=== PATIENT | female | born 1945 | race Caucasian/White ===

== ENCOUNTER → 2016-08-08 | Outpatient (CLI) | payer OTHER ==
--- NOTE | 2016-08-08 10:04 | US ---
Limited Abdominal Sonogram History: Evaluate for aneurysm, high blood pressure, hypercholesterolemia, I 71.4 Comparison: September 11, 2007 abdominal sonogram Findings: The abdominal aorta does not demonstrate aneurysm formation. There is minimal atherosclerot ic plaque present. The proximal aorta measures 2.3 x 2.6 cm. The mid abdominal aorta measures 2.1 x 2.1 cm. The distal abdominal aorta measures 1.9 x 2 cm. The right common iliac artery measures 1.2 x 1.2 cm. The left common iliac artery measures 1.3 x 1.3 cm. Impression: No aneurysm.
== END ==
LOC: BMCIMAGING 09:14
PROVIDERS: ATTEND Internal Medicine
DX: Z03.89 Encounter for observation for other suspected diseases and conditions ruled out (principal)

== ENCOUNTER → 2017-08-13 | Outpatient (CLI) | payer OTHER | LOC: BMCIMAGING 12:30 | PROVIDERS: ATTEND Internal Medicine | DX: I65.23 Occlusion and stenosis of bilateral carotid arteries (principal); E04.1 Nontoxic single thyroid nodule ==

== ENCOUNTER → 2017-08-21 | Outpatient (CLI) | payer OTHER | LOC: BMCIMAGING 13:36 | PROVIDERS: ATTEND Internal Medicine | DX: E04.2 Nontoxic multinodular goiter (principal) | CPT/HCPCS: 76536-PO ==

== ENCOUNTER 2017-09-29 08:09 | Observation (INO) | payer OTHER ==
--- NOTE | 2017-09-29 08:09 | EDPHY ---
H & P Time Seen by Provider: 09/29/17 08:09 HPI/ROS: CHIEF COMPLAINT: Right hip injury HISTORY OF PRESENT ILLNESS: Tripped over her oxygen tubing and fell around midnight or maybe as late as 1:00 a.m. landing on her right hip, brought in by EMS this morning. Says it was mechanical, did not lose consciousness. Her is already upstairs she banged on the wall for 2 hr and then just lay there until he discovered her at 3:30 a.m., but she did not want to go to the hospital. Later on in the morning the came out and she was still lying on the ground, they called a neighbor, who got them to call EMS. Pain in the right hip worse with movement or palpation radiates to the groin. Mild at rest but severe with movement or any attempt to weight bear. REVIEW OF SYSTEMS: Eye: no change in vision or double vision ENT: no sore throat Cardiac: no chest pain or syncope, definitely did not faint during this episode Pulmonary: no cough or SOB; did not wear her oxygen last night but feels like her breathing is normal now. Abdomen: no vomiting, diarrhea, abdominal pain Musculoskeletal: no back pain or neck pain, HPI Skin: no rash Neuro: no headache or head injury Constitutional: no fever : no urinary symptoms A comprehensive 10 point review of systems is otherwise negative aside from elements mentioned in the history of present illness. PAST MEDICAL HISTORY: Dr. Sumeet Valencia in [place]; bilateral hip and shoulder and knee replacements. 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 Oxygen at night only, hypothyroid, hypertension. Social history: Lives in [place], General Appearance: Alert and conversant, cooperative. Eyes: Left subconjunctival hemorrhage. No periorbital bruising. ENT, Mouth: Normal mucous membranes. No external evidence of head trauma on the scalp or the face. Respiratory: Normal respiratory effort, breath sounds equal, lungs are clear to auscultation. Speaking in full sentences with no extra work of breathing. Cardiovascular: Regular rate and rhythm. Gastrointestinal: Abdomen is soft and non tender. Neurological: Alert, face symmetric, normal motor and sensory in extremities. Specifically has normal movement sensation and dorsalis pedis pulse in the right foot. Skin: Warm and dry, no rashes. Musculoskeletal: No spinal tenderness, pelvis stable to compression, right hip as internal rotation and shortening with pain in the right hip on any movement. Good range of motion of all extremities except for the right hip. No point bony tenderness. Psychiatric: Not agitated. Emergency Department course/MDM: Declined pain medication. Labs to include CBC chemistry and CPK. X-rays of the right hip. 2 sips of water this morning but otherwise is been NPO since at least the time of her fall. 920: Discussed with Dr. Baca on-call for Orthopedics, will need his assistance as closed reduction not successful in the emergency department CPK noted as 700, IV normal saline 1 L. Does not have degree of rhabdomyolysis requiring hospitalization. 950: Keven, to OR ,admit hospitalist. Constitutional: Initial Vital Signs Temperature (C) 36.7 C 09/29/17 08:10 Heart Rate 113 H 09/29/17 08:10 Respiratory Rate 18 09/29/17 08:10 Blood Pressure 152/111 H 09/29/17 08:10 O2 Sat (%) 92 09/29/17 08:10 O2 Delivery Mode [Post Nasal Cannula Procedure 4th] O2 Delivery Mode [Procedural Nasal Cannula 3rd] O2 Delivery Mode [Post Nasal Cannula Procedure 2nd] O2 Delivery Mode [Post Non-Rebreather Mask Procedure 1st] O2 Delivery Mode [Procedural Non-Rebreather Mask 1st] O2 Delivery Mode [.Immediate Non-Rebreather Mask Pre-Procedure] O2 Delivery Mode Non-Rebreather Mask O2 (L/minute) [Post Procedure 2 4th] O2 (L/minute) [Procedural 3rd] 2 O2 (L/minute) [Post Procedure 2 2nd] O2 (L/minute) [Post Procedure 15 1st] O2 (L/minute) [Procedural 1st] 15 O2 (L/minute) [.Immediate Pre- 15 Procedure] Allergies/Adverse Reactions: Sulfa (Sulfonamide Antibiotics) Allergy (Verified 09/29/17 08:19) Home Medications: Medication Instructions Recorded Levothyroxine 09/29/17 Protonix 09/29/17 Simvastatin 09/29/17 Valsartan-Hctz 80-12.5 mg Tab 09/29/17 Medical Decision Making - Diagnostics Imaging Results: Imaging Impressions Hip X-Ray 09/29/17 08:14 Impression: Right hip dislocation. Difficult to determine if this is anterior or posterior. Pelvis X-Ray 09/29/17 09:15 Impression: Unsuccessful reduction. Imaging: I viewed and interpreted images myself Procedures: Procedure: Procedural sedation. Indication: Prosthetic hip reduction A pre-sedation evaluation was completed on the patient at 900 including medical history, allergies and medications, last oral intake, previous experience with sedation, airway assessment, physical examination. Patient is an appropriate candidate for procedural sedation. The risks, benefits, and alternatives of the sedation were discussed with the patient including but not limited to need for airway intervention, cardiovascular complications, ; and consent obtained. The patient is ASA class 2E.Mallampati and 3/3/2 airway assessments were completed. A time out was completed. The patient was sedated with propofol. The patient was monitored with continuous pulse oximetry, medical services assistant and end tidal CO2. There were no complications and no significant hypoxemia. I remained at the bedside for the sedation. The total time I spent in the procedural sedation was 12 min. At 9:20 a.m. the patient is alert, awake, and back to neurological and respiratory baseline. Attempt was made at reduction of the right hip under deep sedation and was unsuccessful. Differential Diagnosis: Differential considered including but not limited to prosthetic hip dislocation , femur fracture, pelvis fracture, hip contusion. Consult/Admit Bed Type: [facility] 1000 - Data Points Laboratory Results: Laboratory Results 09/29/17 08:17 09/29/17 08:17 09/29/17 09/29/17 08:17 08:17 WBC 11.16 10^3/uL H 10^3/uL (3.80-9.50) RBC 5.12 10^6/uL 10^6/uL (4.18-5.33) Hgb 15.7 g/dL g/dL (12.6-16.3) Hct 45.4 % % (38.0-47.0) MCV 88.7 fL fL (81.5-99.8) MCH 30.7 pg pg (27.9-34.1) MCHC 34.6 g/dL g/dL (32.4-36.7) RDW 13.1 % % (11.5-15.2) Plt Count 257 10^3/uL 10^3/uL (150-400) MPV 9.8 fL fL (8.7-11.7) Neut % (Auto) 83.0 % H % (39.3-74.2) Lymph % (Auto) 12.5 % L % (15.0-45.0) [place] % (Auto) 3.9 % L % (4.5-13.0) Eos % (Auto) 0.0 % L % (0.6-7.6) Baso % (Auto) 0.3 % % (0.3-1.7) Nucleat RBC Rel Count 0.0 % % (0.0-0.2) Absolute Neuts (auto) 9.27 10^3/uL H 10^3/uL (1.70-6.50) Absolute Lymphs (auto) 1.40 10^3/uL 10^3/uL (1.00-3.00) Absolute Monos (auto) 0.43 10^3/uL 10^3/uL (0.30-0.80) Absolute Eos (auto) 0.00 10^3/uL L 10^3/uL (0.03-0.40) Absolute Basos (auto) 0.03 10^3/uL 10^3/uL (0.02-0.10) Absolute Nucleated RBC 0.00 10^3/uL 10^3/uL (0-0.01) Immature Gran % 0.3 % % (0.0-1.1) Immature Gran # 0.03 10^3/uL 10^3/uL (0.00-0.10) Sodium 138 mEq/L mEq/L (135-145) Potassium 3.7 mEq/L mEq/L (3.5-5.2) Chloride 100 mEq/L mEq/L (97-110) Carbon Dioxide 21 mEq/l L mEq/l (22-31) Anion Gap 17 mEq/L H mEq/L (8-16) BUN 20 mg/dL mg/dL (7-23) Creatinine 0.6 mg/dL mg/dL (0.6-1.0) Estimated GFR > 60 Glucose 155 mg/dL H mg/dL (70-100) Calcium 9.3 mg/dL mg/dL (8.5-10.4) Creatine Kinase 732 IU/L H IU/L (0-156) CK-MB (CK-2) Fraction 15.40 ng/mL H ng/mL (0.00-3.19) CK-MB (CK-2) % 2.1 % % (0.0-4.0) Creatine Kinase Interp NEGATIVE (NEGATIVE) Medications Given: Discontinued Medications Hydromorphone HCl (Dilaudid) 0.5 mg IVP EDNOW ONE Stop: 09/29/17 09:22 Last Admin: 09/29/17 09:25 Dose: 0.5 mg Hydromorphone HCl (Dilaudid) 0.5 mg IVP EDNOW ONE Stop: 09/29/17 09:43 Last Admin: 09/29/17 09:47 Dose: 0.5 mg Sodium Chloride (Ns) 1,000 mls @ 0 mls/hr IV EDNOW ONE; Wide Open PRN Reason: Protocol Stop: 09/29/17 08:40 Last Admin: 09/29/17 08:48 Dose: 1,000 mls Propofol (Diprivan) 100 mg IVP EDNOW ONE Stop: 09/29/17 09:21 Last Admin: 09/29/17 09:11 Dose: 100 mg Departure - Departure Disposition: To OP Cath/Surgery Clinical Impression: Dislocation of internal left hip prosthesis, initial encounter Rhabdomyolysis Qualifiers: Rhabdomyolysis type: traumatic Encounter type: initial encounter Qualified Code (s): T79.6XXA - Traumatic ischemia of muscle, initial encounter Condition: Good
[2017-09-29 08:25] LABS: PLATELET COUNT 257 10^3/uL (150-400)
[2017-09-29 08:35] LABS: CREATINE KINASE 732 IU/L (0-156)
[2017-09-29] MEDS ORDERED: NS 1,000 ML IV ONE (08:39)
[2017-09-29] MEDS ORDERED: PROPOFOL 200 MG/20 ML VIAL ONE ×2 (09:02→10:30)
[2017-09-29] MEDS ORDERED: PROPOFOL 200 MG/20 ML VIAL IVP ONE (09:20)
[2017-09-29] MEDS ORDERED: HYDROmorphONE/DILAUDID 2 MG/ML INJ IVP ONE ×2 (09:21→09:42)
[2017-09-29] MEDS ORDERED: NALOXONE HCL 0.4 MG/ML INJ IVP PRN (10:22)
[2017-09-29] MEDS ORDERED: fentaNYL 100 MCG/2 ML INJ IVP PRN (10:22)
[2017-09-29] MEDS ORDERED: ONDANSETRON 4 MG/2 ML VIAL IVP PRN ×2 (10:22→10:50)
[2017-09-29] MEDS ORDERED: ACETAMINOPHEN 500 MG TAB PO PRN (10:22)
[2017-09-29] MEDS ORDERED: DEXAMETHASONE 4 MG/ML VIAL IVP PRN (10:22)
[2017-09-29] MEDS ORDERED: ALBUTEROL 3 ML DEYVIAL IH PRN (10:22)
[2017-09-29] MEDS ORDERED: HYDROmorphONE/DILAUDID 2 MG/ML INJ IVP PRN ×2 (10:22→10:50)
--- NOTE | 2017-09-29 10:22 | PDANEPAE ---
ANE History of Present Illness Relocation of Hip ANE Past Medical History - Pulmonary History Hx Oxygen in Use at Home: Yes O2 in Use at Home (L/minute): 2 Hx Sleep Apnea: No - Endocrine History Hx Diabetes: No ANE Review of Systems Review of systems is: negative Review of Systems: - Exercise capacity Exercise capacity: limited by disability ANE Patient History - Allergies Allergies/Adverse Reactions: Sulfa (Sulfonamide Antibiotics) Allergy (Verified 09/29/17 08:19) - Home Medications Home Medications: Levothyroxine 09/29/17 [Last Taken Unknown] Protonix 09/29/17 [Last Taken Unknown] Simvastatin 09/29/17 [Last Taken Unknown] Valsartan-Hctz 80-12.5 mg Tab 09/29/17 [Last Taken Unknown] - NPO status NPO Since - Liquids (Date): 09/28/17 NPO Since - Liquids (Time): 21:00 NPO Since - Solids (Date): 09/28/17 NPO Since - Solids (Time): 21:00 - Smoking Hx Smoking Status: Never smoked ANE Labs/Vital Signs - Labs Result Diagrams: 09/29/17 08:17 09/29/17 08:17 - Vital Signs Blood Pressure: 131/88 Heart Rate: 99 Respiratory Rate: 18 O2 Sat (%): 94 Height: 170.18 cm Weight: 106.594 kg ANE Physical Exam - Airway Neck exam: FROM Mallampati Score: Class 2 Mouth exam: normal dental/mouth exam - Pulmonary Pulmonary: clear to auscultation - Cardiovascular Cardiovascular: regular rate and rhythym - ASA Status ASA Status: II ANE Anesthesia Plan Anesthesia Plan: GA w LMA
[2017-09-29] MEDS ORDERED: ROCURONIUM 50 MG/5 ML VIAL ONE (10:30)
[2017-09-29] MEDS ORDERED: PROPOFOL/EMULSION 500 MG/50 ML BOTTLE IV ONE (10:32)
[2017-09-29] MEDS ORDERED: fentaNYL 100 MCG/2 ML INJ ONE (10:34)
--- NOTE | 2017-09-29 10:44 | GCON ---
[f rep st] CONSULTATION CHIEF COMPLAINT: Right hip dislocation. HISTORY OF PRESENT ILLNESS: The patient is a 72-year-old woman who tripped over oxygen tubing early this morning and landed across her right hip. She also wrenched across her left shoulder. She denie d any loss of consciousness. She had no prodrome symptoms. She laid there for 2 hours until she was able to awaken her and ultimately was brought to the hospital by ambulance for further evalu ation. In the emergency department, she has had an attempt at closed reduction of a prosthetic total hip on the right side, unsuccessfully. She denies any other focal complaints currently. PAST MEDICAL HISTORY: She has had bilateral shoulder, bilateral hip, bilateral knee replacements. S he has Hodgkin disease and breast cancer. 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 PAST SURGICAL HISTORY: As above. The right hip was performed in 1999 by a physician in [place]. S he has had no previous dislocations. REVIEW OF SYSTEMS: Negative for blurry or double vision. She denies any chest pain or shortness of breath. No belly pain. She does have slight left shoulder muscular discomfort with no numbness or t ingling otherwise and right hip pain as above. SOCIAL HISTORY: She lives in [place]. She is . OBJECTIVE: GENERAL: This is a healthy, elderly woman, lying supine in bed. No acute distress. ANAT NT: Demonstrates left periorbital swelling and bruising. She has a left subconjunctival hemorrhage. Appropriate visual tracking. No blurry vision, subjectively. EXTREMITIES: Left shoulder exam is deferred. Right lower extremity is shortened, externally rotated. She has posterior hip approach in cision which is well healed. She has intact sensation across the bilateral lower limbs. There is no focal crepitus or step-off. She has well-healed anterior knee incisions consistent with total knee replacements. RADIOGRAPHS: AP pelvis demonstrates bilateral total hip replacements. She has a posterior-superior dislocation of her left hip. There is apparently no fracture. This is a cemented stem, and there is no loosening around the acetabular femoral component. IMPRESSION: Right total hip arthroplasty, periprosthetic dislocation. TREATMENT PLAN: I have recommended closed reduction. I have outlined the surgical procedure, risks, benefits, and alternatives. As she has failed more conservative attempts, I have recommended operat colette reduction with paralysis. Outlined the risks, benefits, and alternatives with her, including fra cture, recurrent dislocation and instability. She will require postoperative precautions for mobilit y. /[id number]/MODL
[2017-09-29] MEDS ORDERED: SUGAMMADEX SODIUM 200 MG/2 ML VIAL IVP ONE ×2 (10:46)
[2017-09-29] MEDS ORDERED: OXYCODONE/APAP 5/325 TAB PO PRN (10:50)
[2017-09-29] MEDS ORDERED: ACETAMINOPHEN 325 MG TAB PO PRN (10:50)
[2017-09-29] MEDS ORDERED: ONDANSETRON DISINTEGRATING 4 MG TAB PO PRN (10:50)
[2017-09-29] MEDS ORDERED: NS 1,000 ML IV SCH (11:00)
--- NOTE | 2017-09-29 11:00 | POSTANESTH ---
Post Anesthetic Evaluation Cardiovascular Status: Normal, Stable Respiratory Status: Normal, Stable Level of Consciousness/Mental Status: Alert and Oriented Pain Control: Adequate, Prn Tx Ordered Nausea/Vomiting Control: Adequate, Prn Tx Ordered Complications Possibly Related to Anesthesia: None Noted
--- NOTE | 2017-09-29 17:05 | GHP ---
[f rep st] HISTORY AND PHYSICAL DATE OF ADMISSION: 09/29/2017 CHIEF COMPLAINT: Hip pain. HISTORY OF PRESENT ILLNESS: This is a 72-year-old female with a history of bilateral hip surgery, who was ambulating the evening prior to presentation with oxygen tubing, and apparently got tangled in her tubing and had a traumatic fall. Patient had immediate discomfort on the left side and sought emergency care. In the emergency department, patient was found to have a dislocated left hip. There were attempts made for reduction unsuccessfully. The patient was taken emergently to the operating room for intraoperative reduction. Post reduction, patient is denying any chest pain, denying any shortness of breath, denying palpitation, and denying abdominal pain. She is experiencing some nausea and anorexia. Denying any headaches. Reports improved discomfort of her left hip. Denies any neuropathy, tingling, fevers, or chills. PAST MEDICAL HISTORY: 1. Breast cancer, status post bilateral mastectomy; currently in remission. 2. Hodgkin lymphoma, also in remission. 3. Hypertension. 4. Hypothyroidism. 5. Nocturnal hypoxia attributed to a side-effect of her chemotherapy. SOCIAL HISTORY: Negative for tobacco. Occasional alcohol. No illicit drugs or marijuana. FAMILY HISTORY: Positive for breast cancer. REVIEW OF SYSTEMS: A 10-point review of systems is negative with the exceptions to that reported in HPI PHYSICAL EXAMINATION: VITAL SIGNS: Blood pressure 110/72, heart rate 80, respiratory rate 12, saturating 94% on 2 L. Patient is afebrile. GENERAL: A healthy-appearing elderly female sitting up in bed. HEENT: Notable for moist mucous membranes. Eye exam negative for any icterus. CARDIAC: Regular rate and rhythm. A systolic murmur is appreciated. PULMONARY: Clear to auscultation bilaterally. GASTROINTESTINAL: Positive bowel sounds. Abdomen is soft and nontender. MUSCULOSKELETAL: Patient has no lower extremity edema. SKIN: Negative for any rashes. NEUROLOGIC: Alert and oriented x3. PSYCHIATRIC: Pleasant cooperative on interview and examination. DATA: Hip x-ray/pelvis x-ray, which I personally reviewed and interpreted, shows preoperative dislocation, not successfully reduced in the emergency department. LABORATORY: White count is normal. ASSESSMENT AND PLAN: This is a 72-year-old female presenting hip dislocation. 1. Acute hip dislocation: Patient was taken for intraoperative reduction, which was successful. Her pain is improved. We will treat as needed with p.r.n. pain medications this evening. Have ordered physical therapy and occupational therapy for the morning. If her pain is adequately controlled and she is safely ambulating, can discharge home tomorrow with or without home physical therapy per recommendations provided by therapy. 2. Hypertension: Can continue patient's home medications once reconciled. 3. Hypothyroidism: Will continue her thyroid replacement therapy once reconciled. 4. Prophylaxis: Sequential compression devices until cleared for Lovenox by Orthopedics. 5. Diet: Regular. DISPOSITION: I expect less than 2 midnights. If the patient has prompt postoperative recovery, she should be a candidate for disposition in the morning. I have discussed the case with the RN. We will treat with p.r.n. pain medications as needed. Suspect she will only need oral agents as her pain is currently well controlled. /[id number]/MODL MTDD
--- NOTE | 2017-09-29 17:30 | GOP ---
[f rep st] OPERATIVE REPORT DATE OF OPERATION: 09/29/2017 SURGEON: Thierno Baca MD [employer] OPERATOR: Ry Gaxiola, INTERNAL AUDIT CONSULTANT, [facility], who was a medical necessity for the entirety of the case. PREOPERATIVE DIAGNOSIS: Closed right periprosthetic total hip dislocation. POSTOPERATIVE DIAGNOSIS: Closed right periprosthetic total hip dislocation. PROCEDURE PERFORMED: Closed reduction, right total hip. FINDINGS: DESCRIPTION OF PROCEDURE: Patient was identified in the preanesthesia area. The right hip was clear ly demarcated as the operative site with indelible marker. She was not given any preoperative antibi otics. In the OR, general endotracheal anesthesia and paralysis was induced. Appropriate time-out p rocedure was carried out. With gentle traction upon the limb and internal and external rotation, the hip was reduced without difficulty. Stability testing revealed repeat dislocation at 90 degrees hip flexion with 20 degrees internal rotation. She was placed into an abduction wedge. Additional radi ographs confirmed concentric reduction without fracture. She was awakened and taken to the recovery room in good and stable condition. OPERATIVE INDICATIONS: Tari is a 72-year-old woman who underwent a right total hip replacement in 1999 by a surgeon in [place]. States she tripped over her oxygen tubing early this morning and slade ded across her hip. She has a clear posterior dislocation. She was brought to the emergency departm ent. Initial attempts by the emergency department personnel was unsuccessful in reducing the hip; an d therefore recommended operative intervention for paralysis and closed reduction. She understood th e risks, benefits, and alternatives, and wished to proceed. Written consent was signed and placed in patient's chart. /[id number]/MODL
--- NOTE | 2017-09-29 17:42 | ASMTCMCOM ---
CM Note CM Note Notes: Pt has been admitted with a hip dislocation after a fall at home, s/p a closed reduction. She has a hx of bilateral hip surgery. PT/OT are pending. CM will follow for any d/c needs. Date Signed: 09/29/2017 05:41 PM Electronically Signed By:YAMILETH Gauthier
[2017-09-30 04:51] LABS: PLATELET COUNT 202 10^3/uL (150-400)
[2017-09-30 07:46] VITALS: RESP 16
--- NOTE | 2017-09-30 08:34 | SOAPPROG ---
SOAP Progress Note Assessment/Plan: Assessment: s/p right le dislocation Plan:d/c home when cleared by pt posterior hip precautions for six weeks 09/30/17 08:33 Subjective: no co Objective: Vital Signs Temp Pulse Resp BP Pulse Ox 36.7 C 95 16 139/66 H 95 09/30/17 07:45 09/30/17 07:45 09/30/17 07:45 09/30/17 07:45 09/30/17 07:45 Laboratory Results 09/30/17 04:10 09/30/17 04:10 09/29/17 09/30/17 10/01/17 05:59 05:59 05:59 Intake Total 2177 Output Total 1650 Balance 527 min swelling no calf swelling or ttp intact pf,df, ehl neg homans judy ICD10 Worksheet Patient Problems: Problems Problem Status Onset Dislocation of internal left hip prosthesis, initial encounter Acute Rhabdomyolysis Acute
[2017-09-30] MEDS ORDERED: ASPIRIN 81 MG CHEWABLE TAB PO SCH (09:00)
[2017-09-30] MEDS ORDERED: OMEGA-3 FATTY ACIDS 1,000 MG CAP PO SCH (09:00)
[2017-09-30] MEDS ORDERED: VALSARTAN 160 MG TAB PO SCH (09:00)
[2017-09-30] MEDS ORDERED: NON-FORMULARY NEW DRUG (Valsartan/Hydrochlorothiazide [Valsartan-Hctz 160-12.5 Mg Tab] 1 E PO SCH (09:00)
[2017-09-30] MEDS ORDERED: HYDROCHLOROTHIAZIDE 12.5 MG CAP PO SCH (09:00)
[2017-09-30] MEDS ORDERED: PANTOPRAZOLE SODIUM 40 MG TAB PO SCH (09:00)
[2017-09-30] MEDS ORDERED: ATORVASTATIN CALCIUM 20 MG TAB PO SCH (09:00)
[2017-09-30] MEDS ORDERED: MULTIVITAMINS 1 EACH TAB PO SCH (09:00)
[2017-09-30 11:58] VITALS: BP 112/68; PULSE 91; TEMP 98.2; O2SAT 93
--- NOTE | 2017-09-30 12:10 | ASMTLACE ---
LACE Length of stay for Answers: Less than 1 day current admission Acuity / Level of Answers: No Care: Did the patient have an inpatient admission? Comorbidities - select Answers: Any tumor (including all that apply lymphoma or leukemia) Other Notes: HTN, Hypothyroid, Hip dislocation # of Emergency department Answers: 1-2 visits in the last 6 months Score: 4 Date Signed: 09/30/2017 12:09 PM Electronically Signed By:Nohelia Bazzi LCSW
--- NOTE | 2017-09-30 12:20 | ASDISCHSUM ---
Discharge Information Plan Status:Home with No Needs Medically Cleared to Leave:09/30/2017 Discharge Date:09/30/2017 CM D/C Disposition:Home, Routine, Self-Care ADT D/C Disposition:Home, Routine, Self-Care Projected Discharge Date:09/30/2017 01:00 PM Transportation at D/C:Family Discharge Delay Reason: Follow-Up Date:09/30/2017 01:00 PM Discharge Slot:2 - 12:01 pm - 18:00 pm Final Diagnosis:Hip dislocation Placement Information Patient Contact Information Contact Name:MANE Relationship: Address:[address] City:[place] Alternate Phone: State/Zip Code:[place] [address] Email: Financial Information Financial Class:Medicare Primary Plan Desc:MEDICARE OUTPATIENT Primary Plan Number:[id number] Secondary Plan Desc:[facility] Secondary Plan Number:[id number] Assessment Information [facility] CM Progress Note CM Note CM Note Notes: Pt has been admitted with a hip dislocation after a fall at home, s/p a closed reduction. She has a hx of bilateral hip surgery. PT/OT are pending. CM will follow for any d/c needs. Date Signed: 09/29/2017 05:41 PM Electronically Signed By:YAMILETH Gauthier Case Management Discharge Plan Note Case Management Discharge Discharge Order Complete? Answers: Yes Patient to Obtain Answers: via Family Medications Transportation Arranged Answers: Family/Friends Transport will Pick (Date 09/30/2017 01:00 PM & Time) Family Notified Answers: Yes Notes: Family to transport Discharge Comments Notes: Patient has been discharge home w/. Therapies recommend Out-pt Rehab. Needs O2 at night. Date Signed: 09/30/2017 12:05 PM Electronically Signed By:Nohelia Bazzi LCSW LACE LACE Length of stay for Answers: Less than 1 day current admission Acuity / Level of Answers: No Care: Did the patient have an inpatient admission? Comorbidities - select Answers: Any tumor (including all that apply lymphoma or leukemia) Other Notes: HTN, Hypothyroid, Hip dislocation # of Emergency department Answers: 1-2 visits in the last 6 months Score: 4 Date Signed: 09/30/2017 12:09 PM Electronically Signed By:Nohelia Bazzi LCSW Intervention Information
--- NOTE | 2017-09-30 13:28 | GDS ---
[f rep st] DISCHARGE SUMMARY DISCHARGE DIAGNOSES: Include: 1. Acute hip dislocations status post intraoperative reduction. 2. Hypertension. 3. Hypothyroidism. 4. History of Hodgkin lymphoma. 5. History of breast cancer. HISTORY OF PRESENT ILLNESS: A 72-year-old female status post a mechanical fall with right hip disloc ation. For details of patient's initial presentation, please see the History and Physical dated 09/07. CONSULTATIVE SERVICES: Include orthopedic consultation. HOSPITAL COURSE BY ISSUE: Patient is status post fall with a dislocation of her right prosthetic hip . Right prosthetic hip dislocation. Patient was taken to the operating room and had reduction perfo rmed intraoperatively. The patient was nearly pain free morning after admission, cleared PT, and was discharged home without complication or pain medications. She is weightbearing as tolerated. Will follow in the outpatient setting with Dr. Baca. MEDICATIONS AT THE TIME OF DISPOSITION: Please reference the med rec printed on 09/30/2017. FOLLOWUP APPOINTMENTS: Include with Dr. Baca. PENDING STUDIES: At time of this dictation are none. TIME SPENT: I spent greater than 30 minutes in the planning and coordination of this discharge. /[id number]/MODL
[2017-10-01] MEDS ORDERED: LEVOTHYROXINE 88 MCG TAB PO SCH (08:30)
== END 2017-09-30 12:37 | disposition home or self-care (01) ==
LOC: EDUNIT# → EDBD → F3N 11:29
PROVIDERS: ADMIT Hospitalist; ATTEND Hospitalist
PROC: 0SS9XZZ Reposition Right Hip Joint, External Approach (ICD-10-PCS; 2017-09-29)
PROC: BQ101ZZ Fluoroscopy of Right Hip using Low Osmolar Contrast (ICD-10-PCS; 2017-09-29)
PROC: 0SS9XZZ Reposition Right Hip Joint, External Approach (ICD-10-PCS; principal; 2017-09-29 10:15)
DX: T84.021A Dislocation of internal left hip prosthesis, initial encounter (principal); E86.9 Volume depletion, unspecified; W01.0XXA Fall on same level from slipping, tripping and stumbling without subsequent striking against object, initial encounter; Y92.013 Bedroom of single-family (private) house as the place of occurrence of the external cause; Y99.8 Other external cause status; I10 Essential (primary) hypertension; E03.9 Hypothyroidism, unspecified; J44.9 Chronic obstructive pulmonary disease, unspecified; Z96.643 Presence of artificial hip joint, bilateral; Z96.653 Presence of artificial knee joint, bilateral; Z96.619 Presence of unspecified artificial shoulder joint; Z85.71 Personal history of Hodgkin lymphoma; Z85.3 Personal history of malignant neoplasm of breast; Z90.13 Acquired absence of bilateral breasts and nipples; Z88.2 Allergy status to sulfonamides
CPT/HCPCS: 27265; 27266; 72170; 73502; 76001; 97116; 97161; 97165; 97530; 97535; G0378; G8978; G8979; G8980; G8987; G8988; G8989; J1170; J2405; J2704; J3010; 96374

== ENCOUNTER → 2017-12-10 | Outpatient (CLI) | payer OTHER | LOC: FCPNEURO 21:00 | PROVIDERS: ATTEND Student in an Organized Health Care Education/Training Program | DX: G47.33 Obstructive sleep apnea (adult) (pediatric) (principal); R09.02 Hypoxemia; J44.9 Chronic obstructive pulmonary disease, unspecified ==

== ENCOUNTER 2018-08-04 12:13 | Emergency (ER) | payer OTHER ==
--- NOTE | 2018-08-04 12:34 | EDPHY ---
HPI/HX/ROS/PE/MDM Narrative: CHIEF COMPLAINT: Chest pain HPI: The patient is a 73 y/o female with a history of breast cancer, Hodgkin lymphoma, and hypertension who arrives with her for evaluation of a short episode of chest pain earlier today. She describes sitting at her kitchen table when she suddenly "had series of 3 or 4 sharp pains" along the left side of her chest over a 2-3 minute period. She describes the sensation like a " shock of pain." She's never had symptoms like this previously. She has a known heart murmur and some valvular calcification, but otherwise denies cardiac history. No recent fever, illness, coughing, heavy lifting, or trauma. She denies associated dyspnea, nausea, abdominal pain, vomiting, diarrhea, or urinary symptoms. REVIEW OF SYSTEMS: A comprehensive 10 system review of systems is otherwise negative aside from elements mentioned in the history of present illness. PMH: Breast cancer s/p bilateral mastectomy, Hodgkin lymphoma 2003 in remission , hypertension, hypothyroidism, arthritis with multiple joint replacements, DVT. SOCIAL HISTORY: at bedside. Nonsmoker. PCP: Dr. Mosley Prior medical records reviewed including admission 09/29/17 for hip pain. PHYSICAL EXAM: General:Patient is alert, in no acute distress. ENT:Eyes are normal to inspection. ENT inspection normal. Neck: Normal inspection. Full range of motion. Respiratory:No respiratory distress. Breath sounds normal bilaterally. Cardiovascular: Regular rate and rhythm. Strong peripheral pulses. Normal cap refill. Abdomen:The abdomen is nontender to palpation. There are no peritoneal signs. Back: Normal to inspection. No tenderness to palpation. Skin: Normal color. No rash. Warm and dry. Extremities: Normal appearance. Full range of motion. Neuro: Oriented x3. Normal motor function. Normal sensory function. ED Course: This is a 73 y/o female with a history of breast cancer, Hodgkin's lymphoma, and hypertension who presents after a brief episode of sharp, left-sided chest pain this morning. She is currently asymptomatic and her exam is unremarkable. Will evaluate for respiratory and infectious etiologies. ACS less likely. Plan for IV, labs, EKG, chest x-ray. The 12 lead EKG was interpreted by myself. See hard copy and/or "tracemaster" electronic copy for interpretation. Chest x-ray: negative. D-dimer is elevated at 0.69. Reevaluated patient and discussed findings. She tells me her calf was sore yesterday and she does have a history of a DVT. She would like to proceed with chest CTA to rule out PE. MDM: This patient presents with atypical chest pain. We performed an extensive workup including CTA, ECG and troponin, all of which are negative. I see no signs of PTx, PNA, ACS. TAD or PE. - Data Points Imaging Results: Imaging Impressions Chest/Thorax CTA 08/04/18 13:21 Impression: 1. No evidence of pulmonary embolus using CT protocol. 2. Atherosclerotic calcifications associated with the thoracic aorta as well as mural thrombus descending thoracic aorta. 3. Calcifications and thickening of the aortic valve level. 4. Scoliosis with degenerative changes thoracic spine. Findings discussed with Kevin Ariza MD at 14:15 hour, 08/04/2018. Imaging: Discussed imaging studies w/ tallier Radiologist, I viewed and interpreted images myself Laboratory Results: Laboratory Results 08/04/18 12:30 08/04/18 12:30 08/04/18 08/04/18 08/04/18 12:30 12:30 12:30 WBC RBC Hgb Hct MCV MCH MCHC RDW Plt Count MPV Neut % (Auto) Lymph % (Auto) Bailey % (Auto) Eos % (Auto) Baso % (Auto) Nucleat RBC Rel Count Absolute Neuts (auto) Absolute Lymphs (auto) Absolute Monos (auto) Absolute Eos (auto) Absolute Basos (auto) Absolute Nucleated RBC Immature Gran % Immature Gran # D-Dimer 0.69 ug/mLFEU H ug/mLFEU (0.00-0.50) Sodium 139 mEq/L mEq/L (135-145) Potassium 4.0 mEq/L mEq/L (3.5-5.2) Chloride 105 mEq/L mEq/L (97-110) Carbon Dioxide 26 mEq/l mEq/l (22-31) Anion Gap 8 mEq/L mEq/L (6-14) BUN 27 mg/dL H mg/dL (7-23) Creatinine 0.7 mg/dL mg/dL (0.6-1.0) Estimated GFR > 60 Glucose 146 mg/dL H mg/dL (70-100) Calcium 9.6 mg/dL mg/dL (8.5-10.4) POC Troponin I 0.00 ng/mL ng/mL (0.00-0.08) 08/04/18 12:30 WBC 6.83 10^3/uL 10^3/uL (3.80-9.50) RBC 4.86 10^6/uL 10^6/uL (4.18-5.33) Hgb 15.5 g/dL g/dL (12.6-16.3) Hct 45.8 % % (38.0-47.0) MCV 94.2 fL fL (81.5-99.8) MCH 31.9 pg pg (27.9-34.1) MCHC 33.8 g/dL g/dL (32.4-36.7) RDW 14.0 % % (11.5-15.2) Plt Count 219 10^3/uL 10^3/uL (150-400) MPV 9.7 fL fL (8.7-11.7) Neut % (Auto) 61.2 % % (39.3-74.2) Lymph % (Auto) 28.1 % % (15.0-45.0) Bailey % (Auto) 6.6 % % (4.5-13.0) Eos % (Auto) 3.1 % % (0.6-7.6) Baso % (Auto) 0.9 % % (0.3-1.7) Nucleat RBC Rel Count 0.0 % % (0.0-0.2) Absolute Neuts (auto) 4.18 10^3/uL 10^3/uL (1.70-6.50) Absolute Lymphs (auto) 1.92 10^3/uL 10^3/uL (1.00-3.00) Absolute Monos (auto) 0.45 10^3/uL 10^3/uL (0.30-0.80) Absolute Eos (auto) 0.21 10^3/uL 10^3/uL (0.03-0.40) Absolute Basos (auto) 0.06 10^3/uL 10^3/uL (0.02-0.10) Absolute Nucleated RBC 0.00 10^3/uL 10^3/uL (0-0.01) Immature Gran % 0.1 % % (0.0-1.1) Immature Gran # 0.01 10^3/uL 10^3/uL (0.00-0.10) D-Dimer Sodium Potassium Chloride Carbon Dioxide Anion Gap BUN Creatinine Estimated GFR Glucose Calcium POC Troponin I Point of Care Test Results: Chemistry 08/04/18 12:30 POC Troponin I 0.00 ng/mL ng/mL (0.00-0.08) General Time Seen by Provider: 08/04/18 12:22 Initial Vital Signs: Initial Vital Signs Temperature (C) 36.7 C 08/04/18 12:16 Heart Rate 106 H 08/04/18 12:16 Respiratory Rate 18 08/04/18 12:16 Blood Pressure 148/80 H 08/04/18 12:16 O2 Sat (%) 92 08/04/18 12:16 O2 Delivery Mode Room Air Allergies/Adverse Reactions: Sulfa (Sulfonamide Antibiotics) Allergy (Verified 09/29/17 08:19) Home Medications: Medication Instructions Recorded Aspirin [Aspirin 81mg (*)] 81 mg PO DAILY 09/29/17 Calcium Carbonate [Oyster Shell 500 mg PO DAILY 09/29/17 Calcium 500 mg (*)] Levothyroxine [Synthroid 88 mcg 88 mcg PO DAILY@0830 09/29/17 (*)] Multivitamins [Multivitamin (*)] 1 each PO DAILY 09/29/17 Knobel-3 Fatty Acids [Fish Oil 1000 1,000 mg PO DAILY 09/29/17 mg (*)] Pantoprazole Sodium [Protonix 40mg 40 mg PO DAILY 09/29/17 (*)] Simvastatin 40 mg PO DAILY 09/29/17 Valsartan/Hydrochlorothiazide 1 each PO DAILY 09/29/17 [Valsartan-Hctz 160-12.5 mg Tab] Zolpidem Tartrate 5 mg PO HS PRN 09/29/17 Departure - Departure Disposition: Home, Routine, Self-Care Clinical Impression: Chest pain Condition: Good Instructions: Chest Pain (ED) Additional Instructions: Follow up with junior graphic designer this week. Return to the ED for worsening of condition. Referrals: Kizzy Mosley MD [Primary Care Provider] - As per Instructions Mekhi Boyd [Unknown] - As per Instructions Ry King MD [Medical Doctor] - As per Instructions Report Scribed for: Kevin Ariza Report Scribed by: Amanda Murphy Date of Report: 08/04/18 Time of Report: 12:44 Physician Review and Approval Statement: Portions of this note were transcribed by an ED scribe. I personally performed the history, physical exam, and medical decision making; and confirm the accuracy of the information in the transcribed note.
[2018-08-04 12:42] LABS: PLATELET COUNT 219 10^3/uL (150-400)
[2018-08-04] MEDS ORDERED: IOHEXOL 350mgI/ML (OMNIPAQUE) 150 ML BTL IV ONE (13:32)
--- NOTE | 2018-08-04 14:12 | CPEKG ---
Test Reason : OPEN Blood Pressure : / mmHG Vent. Rate : 104 BPM Atrial Rate : 104 BPM P-R Int : 224 ms QRS Dur : 099 ms QT Int : 323 ms P-R-T Axes : 065 034 026 degrees QTc Int : 425 ms Sinus tachycardia Ventricular premature complex Prolonged NC interval Minimal ST depression, anterolateral leads Minimal ST elevation, inferior leads Confirmed by Kevin Ariza ([id number]) on 08/04/2018 2:12:10 PM Referred By: Kevin Ariza Confirmed By:Kevin Ariza
[2018-08-04 14:37] VITALS: BP 128/76
== END 2018-08-04 14:37 | disposition home or self-care (01) ==
DX: R07.9 Chest pain, unspecified (principal); I10 Essential (primary) hypertension; Z85.3 Personal history of malignant neoplasm of breast; Z85.71 Personal history of Hodgkin lymphoma
CPT/HCPCS: 71046; 71275; 93005; 99285; Q9967; 84484-ER

== ENCOUNTER → 2018-11-11 | Outpatient (CLI) | payer OTHER | LOC: BMCIMAGING 13:33 | PROVIDERS: ATTEND Internal Medicine Endocrinology, Diabetes & Metabolism | DX: E04.1 Nontoxic single thyroid nodule (principal) | CPT/HCPCS: 76536-PO ==